=== PATIENT | male | born 1970 | race Caucasian/White ===

== ENCOUNTER 2016-08-02 20:33 | Emergency (ER) | payer OTHER ==
[~2016-08-02 20:33] MED LIST: ADULT LOW DOSE81 M1 PO; ALLEGRA ALLERG180 M1 PO; ALLEGRA-D 24 H1 EACH PO; ALLOPURINOL300 M1 PO; ALLOPURINOL300 MG PO; AMARYL4 M1 PO; AMBIEN10 M1 PO; BENICAR HCT 20-1 TAB PO; BENICAR HCT 201 EACH PO; BENICAR20 M1 PO; CATAFLAM50 M1 PO; CHOLESTEROL MED; CYCLOBENZAPRINE10 M1 PO; CYCLOBENZAPRINE5 M1 PO; FLEXERIL10 MG PO; HYDROCODON-ACE1 EA16 PO; IBUPROFEN200 M2 PO; LANSOPRAZOLE30 M2 PO; LYSINE PO; LYSINE500 M3 PO; MOTRIN600 MG PO; MULTIVITAMIN1 TAB PO; MULTIVITAMINS1 EAC6 PO; NORCO 5-325 TA1 EACH PO; OMEPRAZOLE20 M1 PO; OMEPRAZOLE20 M4 PO; OPCON-A EYE DRO15 M1 OP; PAROXETINE HCL20 M2 PO; POLYETHYLENE G255 G1 PO; POTASSIUM99 M5 PO; PRILOSEC OTC20 M1 PO; PRILOSEC40 M1 PO; SINGULAIR10 M1 PO; TOPROL XL50 M1 PO; TYLENOL325 M2 PO; VISINE15 ML OP; VITAMIN C500 M3 PO; VITAMIN E400 UNI4 PO; VITAMIN E400 UNI5 PO; XANAX0.25 M1 PO; ZOCOR20 M1 PO
[2016-08-02] MEDS ORDERED: ATIVAN1 M2 PO (21:31)
[2016-08-02] MEDS ORDERED: NORCO 5/3251 TAB PO (22:02)
[2016-09-26] MEDS ORDERED: HYDROCODON-ACE1 EA16 PO (16:37)
[2016-09-26] MEDS ORDERED: IBUPROFEN400 M1 PO (16:37)
[2016-09-26] MEDS ORDERED: AMOXICILLIN (16:38)
[2016-10-01] MEDS ORDERED: CYCLOBENZAPRINE10 M1 PO (09:26)
[2016-10-01] MEDS ORDERED: SULFAMYLON (09:26)
[2016-10-01] MEDS ORDERED: PERCOCET 7.5-31 EAC1 PO (09:27)
[2016-10-01] MEDS ORDERED: VANCOMYCIN HCL500 MG IV (09:28)
[2016-12-10] MEDS ORDERED: DELTASONE20 MG PO (11:08)
== END 2016-08-02 22:26 ==
LOC: EDMED 20:33
DX: S93.401A Sprain of unspecified ligament of right ankle, initial encounter (principal); I10 Essential (primary) hypertension; K21.9 Gastro-esophageal reflux disease without esophagitis; J45.909 Unspecified asthma, uncomplicated; Z88.6 Allergy status to analgesic agent; Z79.899 Other long term (current) drug therapy; X58.XXXA Exposure to other specified factors, initial encounter

== ENCOUNTER 2016-09-13 03:13 | Emergency (ER) | payer OTHER ==
[~2016-09-13 03:13] MED LIST changes: +ATIVAN1 M2 PO; +NORCO 5/3251 TAB PO
[2016-09-13] MEDS ORDERED: PERCOCET 5-3251 EACH PO (04:31)
[2016-09-26] MEDS ORDERED: IBUPROFEN400 M1 PO (16:37)
[2016-09-26] MEDS ORDERED: HYDROCODON-ACE1 EA16 PO (16:37)
[2016-09-26] MEDS ORDERED: AMOXICILLIN (16:38)
[2016-10-01] MEDS ORDERED: SULFAMYLON (09:26)
[2016-10-01] MEDS ORDERED: CYCLOBENZAPRINE10 M1 PO (09:26)
[2016-10-01] MEDS ORDERED: PERCOCET 7.5-31 EAC1 PO (09:27)
[2016-10-01] MEDS ORDERED: VANCOMYCIN HCL500 MG IV (09:28)
[2016-12-10] MEDS ORDERED: DELTASONE20 MG PO (11:08)
== END 2016-09-13 04:45 ==
LOC: EDMED 03:13
DX: S82.64XD Nondisplaced fracture of lateral malleolus of right fibula, subsequent encounter for closed fracture with routine healing (principal); X58.XXXD Exposure to other specified factors, subsequent encounter
CPT/HCPCS: J1885